=== PATIENT | female | born 1975 | race Caucasian/White ===

== ENCOUNTER 2023-12-03 10:03 | Inpatient (IN) | payer OTHER ==
[~2023-12-03] VITALS: Ht 172.7 cm; Wt 61.3 kg
[2023-12-03 10:49] LABS: BASOPHILS 0.9 % (0-2); EOSINOPHILS 3.8 % (0-6); HEMATOCRIT 39.3 % (35.0-50.0); HEMOGLOBIN 13.4 g/dL (12.0-18.0); LYMPHOCYTES 38.2 % (24-44); MCH 31.7 (27-36); MCHC 34.2 g/dl (30-36); MCV 92.9 fl (81-99); MONOCYTES 7.4 % (0-12); NEUTROPHILS 49.7 % (39-80); PLATELET COUNT 297 K/uL (140-440); RBC 4.24 M/ul (4.3-5.7); RDW 13.6 (10.5-15.0)
[2023-12-03 11:04] LABS: ALBUMIN 3.7 g/dL (3.4-5.0); ALBUMIN/GLOBULIN RATIO 1.19 (1.1-2.4); ANION GAP 10.9 (7-21); BILIRUBIN, TOTAL 0.8 ng/dL (0.2-1.0); BUN/CREATININE RATIO 11.32 (6.0-28.6); CALCIUM 9.1 mg/dL (8.5-10.1); CREATININE, SERUM 1.06 mg/dL (0.55-1.02); POTASSIUM 3.9 mmol/L (3.5-5.1); PROTEIN, TOTAL 6.8 g/dL (6.4-8.2)
[2023-12-03 11:06] LABS: PARTIAL THROMBOPLASTIN TIME 27.8 Sec (22.9-41.3)
[2023-12-03 11:07] LABS: INR 1.13 (0.80-1.30); PROTIME 13.8 Sec (11.2-14.2)
[2023-12-03] MEDS ORDERED: SODIUM CHLORIDE 0.9% 1,000 ML IV ONE (11:15)
[2023-12-03] MEDS ORDERED: ondansetron HCL 4 MG/2 ML VIAL IV ONE ×2 (11:15→16:30)
[2023-12-03 11:26] LABS: ABO B; ANTIBODY SCREEN NEGATIVE; RH POSITIVE
[2023-12-03] MEDS ORDERED: ESTRADIOL1 EAC1 TD (11:31)
[2023-12-03] MEDS ORDERED: PROGESTERONE200 MG PO (11:32)
[2023-12-03] MEDS ORDERED: FLUOXETINE HCL20 MG PO (11:32)
[2023-12-03] MEDS ORDERED: FAMOTIDINE 20 MG/ 2 ML VIAL IV ONE (16:15)
[2023-12-03] MEDS ORDERED: HYDROCORTISONE SOD SUCCINATE 100 MG/2 ML VIAL IV ONE (16:15)
[2023-12-03] MEDS ORDERED: levoFLOXacin 500 MG/100 ML BAG IV ONE (16:15)
[2023-12-03] MEDS ORDERED: DEXTROSE 5% - LACTATED RINGERS 1,000 ML IV SCH (16:15)
[2023-12-03] MEDS ORDERED: ondansetron HCL 4 MG/2 ML VIAL IV PRN ×2 (16:15→19:45)
--- NOTE | 2023-12-03 16:35 | NUR ---
Patient arrives to MS unit via stretcher. Pt A+O, HRR, LSC, bowel tones active, nondistended, tender to palpate. Pt states diarrhea, bloody stool, lightheaded and dizzy chief complaint for admission. IV ABX and IVF infusing WNL. Hx and admission complete. VSS. Warm blankets provided. Call light in reach.
[2023-12-03 16:49] VITALS: BP 117/64
[2023-12-03 17:00] VITALS: BP 117/64
[2023-12-03 18:21] VITALS: BP 116/58
--- NOTE | 2023-12-03 19:11 | NUR ---
Rounding with Dr Yung. IVF infusing WNL. SCDs in place. at bedside, education provided, all questions answered
[2023-12-03] MEDS ORDERED: LACTATED RINGER'S 1,000 ML IV SCH (19:45)
[2023-12-03] MEDS ORDERED: MORPHINE SULFATE 10 MG/ML VIAL IV PRN (19:45)
[2023-12-03] MEDS ORDERED: LACTATED RINGER'S 1,000 ML IV ONE (19:45)
--- NOTE | 2023-12-03 20:59 | NUR ---
RECIEVED REPORT AT 0720. PT IS IN ROOM WITH . A+O. PT IS CURRENTLY IN BED AND REQUESTED PAIN MEDS. MORPHINE GIVEN. PT RECIEVING BOLUS OF LR. NO OTHER CARES NEEDED OR REQUESTED AT THIS TIME. CALL LIGHT WITHIN REACH
[2023-12-03] MEDS ORDERED: FAMOTIDINE 20 MG/ 2 ML VIAL IV SCH (21:00)
[2023-12-03 22:40] VITALS: BP 116/59
--- NOTE | 2023-12-03 22:44 | NUR ---
IN ROOM WITH CANDI TUTTLE TO COLLECT VS AND I&O'S. CALL LIGHT IN REACH, pt DENIES NEEDS OR CONCERNS. CALL LIGHT IN REACH.
--- NOTE | 2023-12-04 04:38 | NUR ---
[facility]ING [facility] 0100 TO 0430
[2023-12-04 05:40] LABS: BASOPHILS 0.8 % (0-2); EOSINOPHILS 0.6 % (0-6); HEMATOCRIT 36.5 % (35.0-50.0); HEMOGLOBIN 12.1 g/dL (12.0-18.0); LYMPHOCYTES 23.3 % (24-44); MCH 31.3 (27-36); MCHC 33.3 g/dl (30-36); MCV 94.1 fl (81-99); MONOCYTES 8.2 % (0-12); NEUTROPHILS 67.1 % (39-80); PLATELET COUNT 251 K/uL (140-440); RBC 3.88 M/ul (4.3-5.7); RDW 13.2 (10.5-15.0)
[2023-12-04 05:52] LABS: ANION GAP 10.3 (7-21); BUN/CREATININE RATIO 9.67 (6.0-28.6); CALCIUM 8.4 mg/dL (8.5-10.1); CREATININE, SERUM 0.93 mg/dL (0.55-1.02); POTASSIUM 4.3 mmol/L (3.5-5.1)
--- NOTE | 2023-12-04 07:50 | NUR ---
RECEIVED REPORT FROM KLARISSA TEJEDA. ASSUMING CARE OF PT.
--- NOTE | 2023-12-04 08:22 | NUR ---
PT AWAKE AND ALERT, SITTING UP IN BED. PT COMPLAINS OF NAUSEA AND HEADACHE, REQUESTS PRN ANTINAUSEA MEDICATION, GIVEN. PT CONTINUES TO AMBULATE AROUND ROOM INDEPENDENTLY. ABDOMEN SOFT, TENDER TO PALPATION MORE SO ON THE LEFT SIDE PER PT. ACTIVE BOWEL TONES, NO DISTENTION PRESENT. PT GIVEN ICE PACK AND COOL WASH CLOTH TO ASSIST WITH HEADACHE PER REQUEST. PT TOLERATES CLEAR LIQUID DIET THIS MORNING WITH NAUSEA FOLLOWING. PT STATES NO FURTHER NEEDS AT THIS TIME, CALL LIGHT WITHIN REACH, AT THE BEDSIDE.
[2023-12-04 09:16] VITALS: BP 111/44
--- NOTE | 2023-12-04 09:41 | NUR ---
THIS RN SPEAKS WITH DR. GOVEA TO UPDATE ON PT STATUS AND ASSESSMENT PT HAS HAD MULTIPLE EMESIS THIS MORNING AND HAS NOT YET HAD A BM, PREVENTING STOOL SAMPLE FROM BEING COLLECTED THUS FAR. DR. GOVEA AWARE, STATES TO LIMIT AMOUNT OF ORAL FLUID INTAKE, NO NEW ORDERS AT THIS TIME.
--- NOTE | 2023-12-04 12:10 | NUR ---
Spoke with Faith. She states she lives [place] of [place] on [facility]. She lives with her spouse. She does not have any issues getting in or out of her home and does not use any DME. Pt states she has a nebulizer she used when she had covid. Not in use now. She states colitis is a new diagnosis for her. Plans for a Cscope tomorrow by Dr. Alford. Pt states she does have pcp in [place] where she used to live, Lilian YOON at [facility]. She would like a pcp in our area. [facility] I will add her to their list. Let her know they will call her when their is an opening. Also to call them if the next 2 weeks if she has not received a call. Pt denies needs. C/o headache and rn in room and aware.
--- NOTE | 2023-12-04 12:30 | NUR ---
PT C/O HEADACHE PAIN, STATES SHE WOULD LIKE TO ASK FOR PRN PAIN MEDICINE, STATES MOTRIN IS WHAT SHE TYPICALLY TAKES. PT STATES NO FURTHER NEEDS AT THIS TIME, CALL LIGHT WITHIN REACH.
--- NOTE | 2023-12-04 12:46 | NUR ---
VICENTE, PERSON ON THE PATIENTS WHITE BOARD IN THEIR ROOM CALLED WHEN DR. GOVEA GOT TO THE FLOOR. VICENTE DID NOT ANSWER. CALL ENDED.
[2023-12-04] MEDS ORDERED: MAGNESIUM CITRATE 300 ML BTL PO ONE (13:15)
[2023-12-04] MEDS ORDERED: SUMAtriptan succinate 50 MG TAB PO PRN (13:15)
[2023-12-04 13:18] VITALS: BP 111/44
[2023-12-04 13:23] VITALS: BP 113/56
--- NOTE | 2023-12-04 13:37 | HP ---
[facility] [address] [place], [place] [address] Signed ADMISSION DATE: 12/03/2023 REASON FOR ADMISSION: Sigmoid colitis, weight loss, hematochezia, diarrhea. HISTORY OF PRESENT ILLNESS: This 48-year-old white woman lives in the [facility] formerly in [place], [place]. She is accompanied by her . She has had several days of increasing abdominal cramps and progressive diarrhea. Pain is in the lower abdomen, particularly in the left lower quadrant. She has had a fair amount of bright red blood per rectum, but without perianal pain. She has had blood even after complete bowel movement. She has lost 7 pounds over the past few weeks without intention. A month ago, she was found to have a Campylobacter enteritis and treated with antibiotics for that. The source of the Campylobacter was attributed to contact with her calving operation on her and her [place]. She has had no nausea or vomiting. She has had a feeling of weak and lightheaded to some degree. She denies any family or personal history of colitis in the past, specifically no ulcerative colitis. She has no family history of colon cancer that she is aware of. She is postmenopausal and takes estradiol and fluoxetine as well as progesterone for control of postmenopausal symptoms. ALLERGIES: She has allergies to penicillin (anaphylaxis). Her CT scan was performed through the emergency room showed wall thickening of the sigmoid colon, thought likely to present as mild colitis. She had no other acute findings of the abdomen or pelvis. LABORATORY STUDIES: Show white count of only 6.6, hematocrit 39.3, platelets 297,000. Basic profile normal. Creatinine 1.06. Liver enzymes are essentially normal. Albumin 3.7. INR is 1.13. REVIEW OF SYSTEMS: The patient has what she describes as diarrhea alternating with constipation. Upon close review, her "constipation" means that she has an urge to have bowel movement, does not have one. More rightly this should be called tenesmus. SOCIAL HISTORY: She is . 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 Electronically Signed By: LEMUEL GOVEA MD 12/04/23 1337 PATIENT NAME: LEONARD RUFFIN HISTORY AND PHYSICAL DATE OF : 77 REPORT #: [id number] PHYSICIAN: LEMUEL GOVEA MD PCP: NO PRIMARY CARE PHYSICIAN REPORT IS CONFIDENTIAL AND NOT TO BE RELEASED WITHOUT AUTHORIZATION [facility] [address], [place] [address] Signed PHYSICAL EXAMINATION: GENERAL: A thin white woman who does not look to be systemically toxic at the moment. Lips show probable filler. VITAL SIGNS: Height is 5 feet 8 inches, weight 61.3 kg, BMI is 20.5. NECK: Trachea is midline. Mucous membranes are slightly dry. CHEST: Clear. HEART: Regular without murmur. ABDOMEN: Scaphoid and flat, easily palpated. There is mild tenderness in left lower and left mid abdomen. EXTREMITIES: Show no clubbing, cyanosis, or edema. There is no sign of deep venous thrombosis. LABORATORY DATA: Studies were as described. I have reviewed the CT scan reports as well as all of her labs. ASSESSMENT AND PLAN: She is admitted on a presumptive diagnosis of possible history of colitis, given her age, her persistence of diarrhea, tenesmus, blood per rectum, weight loss and so on. Certainly, this could be a residual enteric infection or could be a post enteritis, irritable bowel problem though I think that is rather unlikely. I am treating "as if" this represents a new onset of ulcerative colitis within the admission medications to include hydrocortisone 100 mg IV q.8 hours parental antibiotic, Levaquin and Flagyl, anticipating a colonoscopy within the next 48 hours to more fully ascertain the appearance of the sigmoid colon and rectum to affirm probability of colitis. We will additionally add an admission lab study of a C-reactive protein and stool studies still will be obtained to assess for enteric pathogens including recurrent or incomplete treatment of Campylobacter or other pathogens such as E coli I discussed all this with the patient and to a lesser extent with her . They understand and agree to proceed. MD MERLY Solis/JEFFERSONL /[id number] Electronically Signed By: LEMUEL GOVEA MD 12/04/23 1337 PATIENT NAME: LEONARD RUFFIN HISTORY AND PHYSICAL DATE OF : 77 REPORT #: [id number] PHYSICIAN: LEMUEL GOVEA MD PCP: NO PRIMARY CARE PHYSICIAN REPORT IS CONFIDENTIAL AND NOT TO BE RELEASED WITHOUT AUTHORIZATION [address] [address] Signed cc: Vern Michaud MD Copies: VERN MICHAUD MD ~ Electronically Signed By: LEMUEL GOVEA MD 12/04/23 1337 PATIENT NAME: LEONARD RUFFIN HISTORY AND PHYSICAL DATE OF : 77 REPORT #: [id number] PHYSICIAN: LEMUEL GOVEA MD PCP: NO PRIMARY CARE PHYSICIAN REPORT IS CONFIDENTIAL AND NOT TO BE RELEASED WITHOUT AUTHORIZATION
--- NOTE | 2023-12-04 13:51 | NUR ---
PT AWAKE IN BED, AT THE BEDSIDE. PT INSTRUCTED ON USE OF MAGNESIUM CITRATE, VERBALIZES UNDERSTANDING. ABDOMEN SOFT, TENDER TO PALPATION ESPECIALLY TO THE LEFT SIDE. PT NOW ON NPO DIET BUT FOR SIPS OF WATER FOR PO MEDICATIONS. PT STATES NO FURTHER NEEDS AT THIS TIME, REQUESTS TIME TO REST AND ALLOW HEADACHE MEDICATION TO "KICK IN". CALL LIGHT WITHIN REACH.
--- NOTE | 2023-12-04 14:18 | NUR ---
Rounded on patient, patient would like to rest, curtains closed and door sign placed.
[2023-12-04] MEDS ORDERED: levoFLOXacin 500 MG/100 ML BAG IV SCH (17:00)
[2023-12-04 17:14] VITALS: BP 121/62
[2023-12-04 17:54] VITALS: BP 121/62
[2023-12-04] MEDS ORDERED: HYDROCORTISONE SOD SUCCINATE 100 MG/2 ML VIAL IV SCH (20:00)
[2023-12-04 20:07] VITALS: BP 119/48
--- NOTE | 2023-12-04 20:18 | NUR ---
vs and i&o's collected and charted, iv fluids infusing wnl. iv site wnl. pt asking about poc for shift and about getting prn imetrex, primary rn updated. no additional needs, call light in reach.
--- NOTE | 2023-12-04 20:40 | NUR ---
REPORT RECEIVED FROM KLARISSA CHEUNG. pt AWAKE RESTING IN BED, RATES PAIN 4/10 IN ABDOMEN. pt FINISHED MAG CITRATE BOTTLE, NO BM REPORTED. NOTIFIED. NEW ORDER RECEIVED FOR IV HYTROCORTISONE REPEATED BACK TO VERIFY.
--- NOTE | 2023-12-04 21:11 | NUR ---
pt AWAKE RESTING IN BED, RATES PAIN 4/10 IN ABDOMEN. DENIES NEED FOR PAIN MEDICATION. COMPLAINS OF ALEXANDER, PRN MEDICATION ADMINISTERED. ASSESSMENT COMPLETE. IVF INFUSING WNL. WARM BLANKET PROVIDED. pt HAS NOT HAD BM AT THIS TIME. SCDS ON. CALL LIGHT IN REACH.
--- NOTE | 2023-12-04 22:05 | NUR ---
pt SLEEPING, AWAKENS TO VOICE, IV ANTIOBIOTIC INFUSING WNL. pt DENIES NEEDS. NO BM REPORTED AT THIS TIME. EYE MASK ON. CALL LIGHT IN REACH.
--- NOTE | 2023-12-05 02:15 | NUR ---
CHECKED ON pt. RESTING IN BED WITH EYES OPEN. UNMEASURED VOID IN TOILET. NO BM REPORTED. IVF INFUSING WNL. DENIES NEEDS. CALL LIGHT IN REACH. SCDS ON.
[2023-12-05 04:21] VITALS: BP 108/59
--- NOTE | 2023-12-05 04:34 | NUR ---
CALL LIGHT ANSWERED, pt REPORTS HAVING BM. LIQUID BROWN BM NOTED (APPROX 100-150MLS) MIXED WITH URINE. UNABLE TO SEND STOOL SAMPLE D/T BM AND URINE MIXING. NEW HATS X2 PROVIDED, pt EDUCATED. VS AND I&O'S COLLECTED, CALL LIGHT IN REACH. PRIMARY RN UPDATED.
--- NOTE | 2023-12-05 04:57 | NUR ---
pt AWAKE AFTER UP FOR VOID AND BM. BM BROWN, LIQUID, MIXED WITH URINE IN HAT. ASSESSMENT COMPLETE. pt STATES PAIN IS MUCH BETTER, "NOT FEELING THE PULSING". SCHEDULED MEDICATIONS ADMINISTERED. IVF INFUSING WNL. CALL LIGHT IN REACH. ALLERGY BAND PLACED ON pt.
[2023-12-05 05:43] VITALS: BP 108/59
--- NOTE | 2023-12-05 06:00 | NUR ---
IN ROOM FOR ANTIBIOTIC ADMINISTRATION. pt SNORING, SOUND MACHINE ON. BREATHING UNLABORED. NO DISTRESS NOTED. CALL LIGHT IN REACH.
--- NOTE | 2023-12-05 08:03 | NUR ---
RECIEVED PT REPORT AT 0733 PT IS CURRENTLY IN BED AWKE AND ON HER PHONE. CURRENTLY DOING THE SAME.
[2023-12-05 08:05] VITALS: BP 110/64
[2023-12-05] MEDS ORDERED: ALPRAZOLAM0.5 MG PO (08:29)
[2023-12-05] MEDS ORDERED: QVAR REDIHALE10.6 GM INH (08:30)
[2023-12-05] MEDS ORDERED: MIDAZOLAM HCL 5 MG/5 ML VIAL ONE (08:49)
[2023-12-05] MEDS ORDERED: fentaNYL citrate 100 MCG/2 ML VIAL ONE (08:50)
[2023-12-05] MEDS ORDERED: MIDAZOLAM HCL 2 MG/2 ML VIAL ONE (09:39)
--- NOTE | 2023-12-05 10:05 | NUR ---
12/05/23 Bonnie5 Tracey Walls 3661-PATIENT ARRIVED TO PACU ON 2L NC RR EVEN. PATIENT VERY DROWSY LAYING LEFT LATERAL AROUSES TO VERBAL STIMULI. IVF INFUSING. PATIENT IS A LITTLE PATIENT REPORTS "STOMACH HURTS" ENCOURAGED TO PASS GAS. PATIENT CLOSES EYES. PATIENT CLAMMY.
[2023-12-05] MEDS ORDERED: BUDESONIDE 3 MG CAPCR PO SCH (10:40)
--- NOTE | 2023-12-05 10:40 | NUR ---
ROUNDS. PT NOT IN ROOM. PROVIDED PRAYER.
[2023-12-05] MEDS ORDERED: metroNIDAZOLE 250 MG TAB PO SCH (10:45)
[2023-12-05] MEDS ORDERED: ACETAMINOPHEN 500 MG TAB PO PRN (10:45)
[2023-12-05] MEDS ORDERED: PANTOPRAZOLE SODIUM 40 MG TABEC PO SCH (10:45)
[2023-12-05 10:53] VITALS: BP 114/63
--- NOTE | 2023-12-05 11:30 | NUR ---
Update from Dr. Alford he plans on this pt discharging to home today. Spoke with pt and she denies needs.
[2023-12-05] MEDS ORDERED: VALACYCLOVIR500 MG PO (11:56)
--- NOTE | 2023-12-05 11:56 | NUR ---
MED REC COMPLETE
[2023-12-05 11:58] VITALS: BP 110/60
[2023-12-05] MEDS ORDERED: ACETAMINOPHEN500 MG PO (12:29)
[2023-12-05] MEDS ORDERED: METRONIDAZOLE250 MG PO (12:29)
[2023-12-05] MEDS ORDERED: SUMATRIPTAN SUC50 MG PO (12:29)
[2023-12-05] MEDS ORDERED: BUDESONIDE EC3 MG PO (12:30)
[2023-12-05] MEDS ORDERED: PANTOPRAZOLE SO40 MG PO (12:30)
[2023-12-05] MEDS ORDERED: ONDANSETRON4 MG/2 M1 IV (12:30)
[2023-12-05 13:24] VITALS: BP 108/52
[2023-12-06 14:07] LABS: DEAMIDATED GLIADIN PEPTIDE,IGA <0.72 FLU (0.00-4.99); TISSUE TRANSGLUTAMINAS TTG,IGA <1.02 FLU (0.00-4.99)
[2023-12-06 18:23] LABS: C. DIFF TOXIN B GENE TCDB,PCR Not Detected (())
[2023-12-06 20:24] LABS: DEAMIDATED GLIADIN PEPTIDE,IGG <0.56 FLU (0.00-4.99); TISSUE TRANSGLUTAMINASE AB,IGG <0.82 FLU (0.00-4.99)
--- NOTE | 2023-12-07 13:43 | OR ---
[facility] [address], [place] [address] Signed DATE OF OPERATION: 12/05/2023 SURGEON: Lemuel Govea MD PREOPERATIVE DIAGNOSES: 1. Weight loss 7 pounds over months, rectal bleeding diarrhea. CT scan findings showing low-grade left-sided colitis. 2. History of severe endometriosis, status post hysterectomy and unilateral salpingo-oophorectomy. POSTOPERATIVE DIAGNOSES: 1. Mild left-sided colitis. 2. Polyp of sigmoid (excised). PROCEDURE: Colonoscopy beyond the splenic flexure to the transverse colon with biopsies and cold snare polypectomy x1. ANESTHESIA: Intravenous sedation fentanyl 200 mcg and Versed 12 mg. INDICATIONS: This 48-year-old white woman lives in [facility] [place]. A year ago she had a Campylobacter enteric infection thought related to calving, had contact with cattle. She was treated with antibiotics for that. In the past several months she has had a 7 pounds weight loss as well as recently bloody diarrhea. Evaluation in the emergency room on December 03 showed mild left-sided colitis. She was admitted on the presumptive diagnosis of possible inflammatory bowel disease or other . Notably, since her admission, she has had no further diarrhea and therefore stool samples have yet to be obtained though they were certainly ordered and C difficile titers obtained as well. She is admitted at this time to undergo colonoscopy, having had only a magnesium citrate bowel prep, now she has been having diarrhea for several days antecedent to this procedure. The risk of bleeding, infection, and perforation related to colonoscopy was reviewed with her, she understands and wished to proceed. FINDINGS: She was relatively tolerant of intravenous medication. Colonoscopy was performed safely beyond the splenic flexure of the transverse colon. There was fine reticular mild inflammation of the transverse and left colon. There was no evidence of rectal inflammation. A small polyp of sigmoid was noted. This was excised with cold snare Electronically Signed By: LEMUEL GOVEA MD 12/07/23 1343 PATIENT NAME: LEONARD RUFFIN OPERATIVE REPORT DATE OF : 77 REPORT #: [id number] PHYSICIAN: LEMUEL GOVEA MD PCP: NO PRIMARY CARE PHYSICIAN REPORT IS CONFIDENTIAL AND NOT TO BE RELEASED WITHOUT AUTHORIZATION [facility] [address] [place], [place] [address] Signed technique. Random biopsies were taken to transverse, left sigmoid and rectal areas. PROCEDURE IN DETAIL: The patient was brought to the surgical endoscopy suite and placed in lateral decubitus position, given intravenous sedation with full cardiopulmonary monitoring. Digital rectal examination was normal. The Olympus video colonoscope was passed in the rectum and irrigation undertaken as there remained an unclear prep. There was no solid stool particularly, however. Scope was advanced and a small adenomatous appearing polyp was noted of the sigmoid. This was excised with cold snare technique and passed for pathology. The scope was advanced further into the left colon, irrigation undertaken as appropriate. There was no sign of severe inflammatory change of any means. No ulcerations. No bleeding. Additional sedation was given as she appeared to be rather tolerant of medications. The scope was advanced beyond the splenic flexure into the transverse colon where similar fine reticular inflammatory changes were noted, but no specific finding diagnostic of ischemic colitis or obvious ulcerative colitis. Given her discomfort and small body habitus and a low-grade inflammation. Passage beyond this at this time was deemed inadvisable. The scope was then repositioned. Biopsies taken of the transverse colon and upon withdrawal, left colon, sigmoid and rectum. The scope was removed. The patient was taken to the recovery room in good condition. CONCLUDING DIAGNOSIS: Low-grade inflammatory changes of colon, possibly transient and infectious considering her clinical course under observation of the past 48 hours. We will treat with Flagyl antibiotic and avoid initiation of prednisone. Would consider prescribing budesonide on the possibility of lymphocytic colitis depending on pathologic findings. She will return to the regular nursing avalos and we will proceed from there. MD MERLY Solis/MODL /[id number] cc: Vern Michaud MD Electronically Signed By: LEMUEL GOVEA MD 12/07/23 1343 PATIENT NAME: LEONARD RUFFIN OPERATIVE REPORT DATE OF : 77 REPORT #: [id number] PHYSICIAN: LEMUEL GOVEA MD PCP: NO PRIMARY CARE PHYSICIAN REPORT IS CONFIDENTIAL AND NOT TO BE RELEASED WITHOUT AUTHORIZATION [facility] [address] [facility] [place] [address] Signed Copies: VERN MICHAUD MD ~ Electronically Signed By: LEMUEL GOVEA MD 12/07/23 1343 PATIENT NAME: LEONARD RUFFIN OPERATIVE REPORT DATE OF : 77 REPORT #: [id number] PHYSICIAN: LEMUEL GOVEA MD PCP: NO PRIMARY CARE PHYSICIAN REPORT IS CONFIDENTIAL AND NOT TO BE RELEASED WITHOUT AUTHORIZATION
--- NOTE | 2023-12-10 11:12 | PATH ---
[facility] [address], [place] [address] Signed SPECIMEN(S): A SIGMOID POLYP SPECIMEN(S): B TRANSVERSE BIOPSY SPECIMEN(S): C DESCENDING BIOPSY SPECIMEN(S): D SIGMOID BIOPSY SPECIMEN(S): E RECTUM BIOPSY SPECIMEN SOURCE: A. SIGMOID POLYP B. TRANSVERSE BIOPSY C. DESCENDING BIOPSY D. SIGMOID BIOPSY E. RECTUM BIOPSY CLINICAL HISTORY: Sigmoid colitis, diarrhea FINAL PATHOLOGIC DIAGNOSIS: A. Sigmoid polyp: - Tubular adenoma. - Negative for high grade dysplasia. B. Transverse biopsy: - Colonic mucosa with no significant histopathologic abnormalities. - Negative for chronic active inflammation. - Negative for dysplasia. C. Descending biopsy: - Colonic mucosa with no significant histopathologic abnormalities. - Negative for chronic active inflammation. - Negative for dysplasia. D. Sigmoid biopsy: - Colonic mucosa with reactive changes and focal fibrosis. See comment. - Negative for chronic active inflammation or dysplasia. E. Rectum biopsy: - Colonic mucosa with reactive changes and focal fibrosis. See comment. - Negative for chronic active inflammation or dysplasia. COMMENT: The sigmoid colon and rectal biopsies show focal areas with surface epithelium damage and thickened subepithelial plate as confirmed by trichrome stain. These features could be seen in collagenous colitis, however, no significant inflammation is present . Clinical correlation is recommended. PATIENT NAME: LEONARD RUFFIN PATHOLOGY DATE OF : 77 REPORT #: [id number] PHYSICIAN: [facility] PATHOLOG[facility] PCP: NO PRIMARY CARE PHYSICIAN REPORT IS CONFIDENTIAL AND NOT TO BE RELEASED WITHOUT AUTHORIZATION [facility] [address] [place], [place] [address] Signed NA:clv MICROSCOPIC EXAMINATION: Histologic sections of all submitted blocks are examined by light microscopy. These findings, together with the gross examination, support the pathologic diagnosis. A Trichrome stain is performed on blocks B,D and E (with appropriately reactive control) and it shows focal areas of thickened subepithelial plate in D and E, supporting the diagnosis. GROSS DESCRIPTION: A. The specimen, labeled and designated "Delamarter, sigmoid polyp," is received in formalin and consists of one flores soft tissue fragment, 0.3 cm. Entirely submitted in (A1). B. The specimen, labeled and designated "Delamarter, transverse biopsy," is received in formalin and consists of two flores soft tissue fragments, ranging from 0.2-0.3 cm. Entirely submitted in (B1). C. The specimen, labeled and designated "Delamarter, descending biopsy," is received in formalin and consists of one flores soft tissue fragment, 0.3 cm. Entirely submitted in (C1). D. The specimen, labeled and designated "Delamarter, sigmoid biopsy," is received in formalin and consists of two flores soft tissue fragments, ranging from 0.3-0.4 cm. Entirely submitted in (D1). E. The specimen, labeled and designated "Delamarter, rectum biopsy," is received in formalin and consists of two flores soft tissue fragments, ranging from 0.2-0.3 cm. Entirely submitted in (E1). VB (under the direct supervision of a pathologist) The Gross Description was prepared using a voice recognition system. The report was reviewed for accuracy; however, sound-alike word errors, addition and/or deletions may occur. If there is any question about this report, please contact Client Services. PERFORMING LABORATORY: Technical component was performed by [facility], [address] [place] [id number] (CLIA# [id number]). Professional interpretation was performed by [facility], [address] [place] [id number] (CLIA# [id number]). Diagnostician: Mag Gandhi MD Pathologist Electronically Signed 12/10/2023 PATIENT NAME: LALYLEONARD PATHOLOGY DATE OF : 77 REPORT #: [id number] PHYSICIAN: [facility] PATH[facility] PCP: NO PRIMARY CARE PHYSICIAN REPORT IS CONFIDENTIAL AND NOT TO BE RELEASED WITHOUT AUTHORIZATION [address] [address] Signed Copies: ~ PATIENT NAME: LALYLEONARDBonifacio FLORES PATHOLOGY DATE OF : 77 REPORT #: [id number] PHYSICIAN: SANDRA PATHOLOGY PCP: NO PRIMARY CARE PHYSICIAN REPORT IS CONFIDENTIAL AND NOT TO BE RELEASED WITHOUT AUTHORIZATION
== END 2023-12-05 14:10 | disposition home or self-care (01) | DRG 392 ==
LOC: ED 10:03 → MS 10:05
PROVIDERS: Emergency Medicine; ADMIT Surgery; ATTEND Surgery
PROC: 0DBL8ZX Excision of Transverse Colon, Via Natural or Artificial Opening Endoscopic, Diagnostic (ICD-10-PCS; 2023-12-05)
PROC: 0DBN8ZX Excision of Sigmoid Colon, Via Natural or Artificial Opening Endoscopic, Diagnostic (ICD-10-PCS; 2023-12-05)
PROC: 0DBP8ZX Excision of Rectum, Via Natural or Artificial Opening Endoscopic, Diagnostic (ICD-10-PCS; 2023-12-05)
PROC: 0DBM8ZX Excision of Descending Colon, Via Natural or Artificial Opening Endoscopic, Diagnostic (ICD-10-PCS; principal; 2023-12-05 09:15)
DX: K52.9 Noninfective gastroenteritis and colitis, unspecified (principal); K92.1 Melena; Z68.1 Body mass index [BMI] 19.9 or less, adult; K63.5 Polyp of colon; R63.4 Abnormal weight loss; Z88.0 Allergy status to penicillin; Z79.899 Other long term (current) drug therapy; Z90.710 Acquired absence of both cervix and uterus; Z90.721 Acquired absence of ovaries, unilateral
CPT/HCPCS: 36415; 74177; 80048; 80053; 85025; 85610; 85730; 86140; 86850; 86900; 86901; 87045; 87046; 87493; 96375; 96376; 99153; A9270; G0378; G0500; J1720; J1956; J2250; J2270; J2405; J3010; J7030; J7121; Q9967